=== PATIENT | male | born 1970 | race African-American/Black ===

== ENCOUNTER 2018-01-25 12:39 | Emergency (ER) | payer OTHER, BC ==
[2018-01-25] MEDS ORDERED: Ibuprofen 800 MG TAB ONE (13:17)
== END 2018-01-25 13:24 | disposition home or self-care (01) ==
LOC: MADERS 12:39
DX: S39.012A Strain of muscle, fascia and tendon of lower back, initial encounter (principal); S29.012A Strain of muscle and tendon of back wall of thorax, initial encounter; I10 Essential (primary) hypertension; V89.2XXA Person injured in unspecified motor-vehicle accident, traffic, initial encounter
CPT/HCPCS: 99283